=== PATIENT | male | born 1980 | race Hispanic/Latino ===

== ENCOUNTER 2017-03-11 12:26 | Emergency (ER) | payer SELFPAY ==
[2017-03-11 13:03] VITALS: BP 126/82; PULSE 51; RESP 18; TEMP 97; O2SAT 99
[2017-03-11] MEDS ORDERED: Lidocaine 1% w Epi 1:100,000 Inj INJ STA (13:51)
--- NOTE | 2017-03-11 13:52 | ED PDOC ---
HPI: Head Injury Time Seen by Provider: 03/11/17 13:35 Chief Complaint (Nursing): Trauma Chief Complaint (Provider): Facial laceration History Per: Patient History/Exam Limitations: no limitations Injury Occurred (Timing): Hours Ago: (2) Additional Complaint(s): Rob is a 36 y/o male presenting to the ED for evaluation of a head laceration, sustained at the gym 2 hours ago. States that while lifting weights , he dropped the barbell on his face and sustained a laceration at the left eyebrow. Denies any associated headache or loss of consciousness. Last Tetanus was within the past 5 years. Patient denies any associated dizziness, nausea, vomiting or vision changes. PMD: None Past Medical History Reviewed: Historical Data, Nursing Documentation, Vital Signs Vital Signs: Last Vital Signs Temp 97 F L 03/11/17 13:00 Pulse 51 L 03/11/17 13:00 Resp 18 03/11/17 13:00 BP 126/82 03/11/17 13:00 Pulse Ox 99 03/11/17 13:00 - Medical History PMH: No Chronic Diseases - Surgical History Other surgeries: Right knee surgery - Family History Family History: States: No Known Family Hx - Living Arrangements Living Arrangements: With Family - Social History Current smoker - smoking cessation education provided: No Alcohol: Social Drugs: Denies - Immunization History Hx Tetanus Toxoid Vaccination: Yes - Allergies Allergies/Adverse Reactions: Allergies Allergy/AdvReac Type Severity Reaction Status Date / Time No Known Allergies Allergy Verified 03/11/17 13:00 Review of Systems ROS Statement: Except As Marked, All Systems Reviewed And Found Negative Eyes: Negative for: Vision Change Gastrointestinal: Negative for: Nausea, Vomiting Skin: Positive for: Other (facial laceration) Neurological: Positive for: Other (denies LOC). Negative for: Headache, Dizziness Physical Exam - Reviewed Nursing Documentation Reviewed: Yes Vital Signs Reviewed: Yes - Physical Exam Appears: Positive for: Non-toxic, No Acute Distress Head Exam: Positive for: NORMOCEPHALIC. Negative for: ATRAUMATIC (1 cm superficial laceration to the medial left eyebrow, and minimal active bleeding) Skin: Positive for: Normal Color Eye Exam: Positive for: Normal appearance, EOMI, PERRL Respiratory: Negative for: Respiratory Distress Extremity: Positive for: Normal ROM Neurologic/Psych: Positive for: Alert, engraver ornamental design II-XII (intact), Oriented, Gait ( steady). Negative for: Aphasia, Facial Droop - ECG O2 Sat by Pulse Oximetry: 99 (RA) Pulse Ox Interpretation: Normal Medical Decision Making Medical Decision Making: Impression: Facial laceration, head injury with no LOC Time: 13:51 Initial Plan: --Ordered Lidocaine 1% with epi --Patient declined plastic surgery consult. He agrees to suture repair by ghost writer. Patient aware of scar potential. See procedure note. Patient tolerated procedure well, wound care instructions provided. Scribe Attestation: Documented by Marybeth Kelly, acting as a scribe for Lashawn Vaz PA-C Provider Scribe Attestation: All medical record entries made by the Scribe were at my direction and personally dictated by me. I have reviewed the chart and agree that the record accurately reflects my personal performance of the history, physical exam, medical decision making, and the department course for this patient. I have also personally directed, reviewed, and agree with the discharge instructions and disposition. Procedures - Laceration/Wound Repair facial laceration Wound Length (cm): 1 (medial right eyebrow) Wound's Depth, Shape: superficial Wound Explored: clean Betadine Prep?: Yes Anesthesia: Lidocaine w/ Epi Volume Anesthetic (ccs): 6 Wound Debrided: minimal Wound Repaired With: Sutures Suture Size/Type: 5:0 (chromic gut) Number of Sutures: 4 Layer Closure?: No Wound Complexity: Simple Sterile Dressing Applied?: No Splint Applied?: No Sling Applied?: No Disposition - Clinical Impression Clinical Impression: Facial laceration - Patient ED Disposition Is Patient to be Admitted: No Counseled Patient/Family Regarding: Diagnosis, Need For Followup - Disposition Referrals: [facility] [Outside] Disposition: Routine/Home Disposition Time: 14:56 Condition: STABLE Additional Instructions: KEEP WOUND CLEAN AND DRY. TAKE ADVIL OR TYLENOL NEEDED FOR PAIN. STITCHES WILL DISSOLVE ON THEIR OWN. Instructions: Facial Laceration (ED), Care For Your Absorbable Stitches (ED) Forms: [employer] (Kinyarwanda)
[2017-03-11] MEDS ORDERED: Lidocaine 2% w Epi 1:100,000 Inj IJ ONE (14:19)
== END 2017-03-11 15:07 | disposition home or self-care (01) ==
LOC: H.ER 12:26
DX: S01.81XA Laceration without foreign body of other part of head, initial encounter (principal); W22.8XXA Striking against or struck by other objects, initial encounter; Y92.838 Other recreation area as the place of occurrence of the external cause